=== PATIENT | male | born 1950 | race Two or more races ===

== ENCOUNTER 2018-04-14 22:36 | Emergency (ER) | payer SELFPAY ==
[~2018-04-14] VITALS: Ht 172.7 cm; Wt 76.0 kg
[2018-04-15] MEDS ORDERED: ACETAMINOPHEN 500MG TABLET PO ONE (00:15)
[2018-04-15] MEDS ORDERED: IBUPROFEN 400MG TABLET PO ONE (00:15)
[2018-04-15 01:15] VITALS: BP 151/77
== END 2018-04-15 01:52 | disposition home or self-care (01) ==
LOC: ER 22:36
DX: S20.219A Contusion of unspecified front wall of thorax, initial encounter (principal); V43.52XA Car driver injured in collision with other type car in traffic accident, initial encounter; Y93.89 Activity, other specified; Y92.410 Unspecified street and highway as the place of occurrence of the external cause
CPT/HCPCS: 71045; 72170; 99284